=== PATIENT | female | born 1940 | race Caucasian/White ===

== ENCOUNTER 2020-10-28 21:27 | Emergency (ER) | payer MEDICARE, OTHER ==
[~2020-10-28] VITALS: Ht 165.1 cm; Wt 98.1 kg
--- NOTE | 2020-10-28 21:50 | NUR ---
MD Kameron Calrke at bedside to do MSE.
[2020-10-28] MEDS ORDERED: AZIL1TAB2 PO (21:58)
[2020-10-28] MEDS ORDERED: CLON0.1T PO (21:58)
[2020-10-28] MEDS ORDERED: CLONIDINE HCL 0.2 MG TABLET PO ONE (22:00)
[2020-10-28] MEDS ORDERED: CLONIDINE HCL 0.2 MG TABLET ONE (22:06)
--- NOTE | 2020-10-28 22:20 | NUR ---
r and d lab technician at bedside to draw labs.
--- NOTE | 2020-10-28 22:25 | NUR ---
copy room technician at bedside to take x-rays.
[2020-10-28 22:36] LABS: BASOPHILS % (AUTO) 0.8 % (0.0-2.0); EOSINOPHILS # (AUTO) 0.2 K/uL (0.0-0.7); EOSINOPHILS % (AUTO) 3.6 % (0.0-7.0); HEMATOCRIT 45.1 % (31.2-41.9); HEMOGLOBIN 14.9 g/dL (10.9-14.3); LYMPHOCYTES # (AUTO) 1.5 K/uL (20.0-40.0); LYMPHOCYTES % (AUTO) 27.4 % (20.5-51.5); MEAN CORPUSCULAR HEMOGLOBIN 31.9 uug (24.7-32.8); MEAN CORPUSCULAR HGB CONC 33 g/dL (32.3-35.6); MEAN CORPUSCULAR VOLUME 96.5 fL (75.5-95.3); MONOCYTES # (AUTO) 0.3 K/uL (2.0-10.0); MONOCYTES % (AUTO) 6.4 % (0.0-11.0); NEUTROPHILS # (AUTO) 3.3 K/uL (1.8-8.9); NEUTROPHILS % (AUTO) 61.8 % (38.5-71.5); PLATELET COUNT (AUTO) 244 K/uL (179-408); RED BLOOD CELL COUNT(AUTO) 4.68 MIL/uL (3.63-4.92); WHITE BLOOD COUNT (AUTO) 5.3 K/uL (3.8-11.8)
--- NOTE | 2020-10-28 22:40 | NUR ---
Patient is resting upright on hospital bed, no acute distress. Daughter at bedside.
[2020-10-28 22:42] LABS: *BILIRUBIN,URIN NEGATIVE (NEGATIVE); *BLOOD, URINE NEGATIVE (NEGATIVE); *KETONES,URINE NEGATIVE (NEGATIVE); *UROBILINOGEN,URINE 0.2 E.U./dl (NORMAL); LEUKOCYTE ESTERASE ,URINE NEGATIVE (NEGATIVE); NITRITE, URINE NEGATIVE (NEGATIVE); UGLUCOSE NEGATIVE (NEGATIVE)
[2020-10-28 22:46] LABS: *CLARITY,URINE CLEAR (CLEAR); *COLOR,URINE STRAW (YELLOW)
[2020-10-28 22:47] LABS: BACTERIA,URINE NONE SEEN /HPF (NONE SEEN); RBC,URINE 0-3 /HPF (0-3); SQUAMOUS EPITHELIAL CELL,UR FEW /HPF (NONE SEEN); WBC,URINE 0-3 /HPF (0-3)
[2020-10-28 22:59] LABS: CREATININE 0.9 mg/dL (0.6-1.3); POTASSIUM 3.8 mmol/L (3.5-5.1)
[2020-10-28 23:05] LABS: BILIRUBIN,DIRECT 0.2 mg/dL (0.0-0.2); BILIRUBIN,TOTAL 0.5 mg/dL (0.2-1.0); TOTAL PROTEIN, SERUM 8.2 g/dL (6.4-8.2)
--- NOTE | 2020-10-28 23:13 | NUR ---
Notable improvement in patient's blood pressure from administration of Catapres from 182/91 to 127/61.
[2020-10-28] MEDS ORDERED: IV NORMAL SALINE 250 ML IV ONE (23:32)
[2020-10-28] MEDS ORDERED: SWABABLE VALVE TRANSFER SET EA MC ONE (23:32)
[2020-10-28] MEDS ORDERED: IOHEXOL 350 100 ML INFUS..BTL ONE (23:32)
--- NOTE | 2020-10-28 23:40 | NUR ---
laboratory mechanical technician taking patient out for CT scan of abdomen/pelvis with contrast. Consent form filled out.
--- NOTE | 2020-10-29 | NUR ---
Patient returned from CT scan.
--- NOTE | 2020-10-29 00:34 | NUR ---
Called radiology department to inform that we have not yet received the interpretation for the patient's CTA of abdomen/pelvis.
[2020-10-29 01:00] VITALS: BP 108/62
--- NOTE | 2020-10-29 01:00 | NUR ---
Patient discharged to home in stable condition. Written and verbal after care instructions given. Patient verbalizes understanding of instructions. Stressed follow up or return to ER for worsening s/s. Patient ambulates with steady gait, V/S stable, received copies of diagnostic imaging, left with all personal belongings, left with daughter by her side.
== END 2020-10-29 01:00 | disposition home or self-care (01) ==
LOC: ER 21:27
DX: I10 Essential (primary) hypertension (principal); R10.9 Unspecified abdominal pain; E78.5 Hyperlipidemia, unspecified; R55 Syncope and collapse; F41.9 Anxiety disorder, unspecified; E66.01 Morbid (severe) obesity due to excess calories; Z68.36 Body mass index [BMI] 36.0-36.9, adult; F17.210 Nicotine dependence, cigarettes, uncomplicated; Z90.49 Acquired absence of other specified parts of digestive tract; Z90.710 Acquired absence of both cervix and uterus; Z88.0 Allergy status to penicillin; I45.10 Unspecified right bundle-branch block
CPT/HCPCS: 36415; 71045; 74174; 80048; 80076; 81001; 83690; 85025; 85730; 93005; 99285; 99406; Q9967; A4663; J7050